=== PATIENT | male | born 1955 | race African-American/Black ===

== ENCOUNTER 2016-09-12 13:01 | Emergency (ER) | payer SELFPAY ==
[~2016-09-12] VITALS: Ht 185.4 cm; Wt 80.0 kg
[~2016-09-12 13:01] MED LIST: METH750T2 PO
[2016-09-12 13:05] VITALS: BP 121/76; PULSE 53; TEMP 97.8; O2SAT 100
[2016-09-12 13:53] LABS: AUTOMATED NEUTROPHIL # 2.2 TH/MM3 (1.8-7.7); EOSINOPHIL # 0.1 TH/MM3 (0-0.4); EOSINOPHIL % 2.5 % (0.0-4.0); HEMATOCRIT 47.2 % (39.0-51.0); HEMO FLAGS DIFF FINAL; LYMPH % 37.6 % (9.0-44.0); LYMPHOCYTE # 1.7 TH/MM3 (1.0-4.8); MEAN CELL VOLUME 91.4 FL (80.0-100.0); MEAN CORPUSCULAR HEMOGLOBIN 30.7 PG (27.0-34.0); MEAN CORPUSCULAR HGB CONC 33.6 % (32.0-36.0); MONO % 10.6 % (0.0-8.0); NEUT % 48.3 % (16.0-70.0); PLATELET COUNT 167 TH/MM3 (150-450); RED BLOOD COUNT 5.17 MIL/MM3 (4.50-5.90); WHITE BLOOD COUNT 4.5 TH/MM3 (4.0-11.0)
[2016-09-12 13:54] LABS: BLOOD, URINE TRACE (NEG); COMMENT (UR) CULT NOT INDICATED; CULTURE IF INDICATED CULT NOT INDICATED; GLUCOSE,URINE NEG (NEG); KETONE, URINE NEG (NEG); NITRITE,URINE NEG (NEG); URINE COLOR LIGHT-YELLOW (YELLW/STRAW)
[2016-09-12 14:21] LABS: BICARBONATE 30.1 MEQ/L (21.0-32.0); POTASSIUM 4.2 MEQ/L (3.5-5.1)
--- NOTE | 2016-09-12 14:22 | PD ---
HPI Chief Complaint: Back/ Neck Pain or Injury Time Seen by Provider: 13:14 Travel History International Travel<30 days: No Contact w/Intl Traveler<30days: No Traveled to known affect area: No History of Present Illness HPI The patient is a 60-year-old Z[place] male who presents to the emergency department multiple complaints. The patient is a 2 day history of left-sided neck pain which radiates into the left aspect of the head. The pain is worse when he turns the head to the left as well as upright into the left. The pain is sharp, radiates up into the left aspect of the head, nasal alleviated when he looks midline. He denies any pain when he turns the head to the right or down. He also complains of urinary frequency over the last several days, states he is getting up at night to urinate occasionally 2-3 times tonight, normally gets up one to 2 times per night. He denies any dysuria, frequency, urgency, or hematuria. He denies any history of diabetes or renal-related disorders. He is sexually active, denies any pain near the meatus or over the scrotal area. [facility] Past Medical History Medical History: Denies Significant Hx Diminished Hearing: No Past Surgical History Surgical History: No Previous Surgery Social History Alcohol Use: No Tobacco Use: Yes Substance Use: No Allergies-Medications (Allergen,Severity, Reaction): Coded Allergies: No Known Allergies (Unverified , 12/17/15) Reported Meds & Prescriptions Reported Meds & Active Scripts Active Robaxin (Methocarbamol) 750 Mg Tab 750 Mg PO Q8 PRN Review of Systems Except as stated in HPI: all other systems reviewed are Neg General / Constitutional: No: Fever HENT: Positive: Headaches, Neck Pain Cardiovascular: No: Chest Pain or Discomfort Respiratory: No: Shortness of Breath Gastrointestinal: No: Nausea, Vomiting, Abdominal Pain Genitourinary: Positive: Frequency, Nocturia, No: Urgency, Dysuria, Hematuria , Decreased Urinary Output, Hesitancy, Pelvic Pain Musculoskeletal: No: Myalgias, Arthralgias Skin: No Rash Physical Exam Narrative GENERAL: Awake, alert, pleasant 60-year-old [place] male who appears his stated age and is in no acute respiratory distress. SKIN: Focused skin assessment warm/dry. HEAD: Atraumatic. Normocephalic. EYES: Pupils equal and round. No scleral icterus. No injection or drainage. ENT: No nasal bleeding or discharge. Mucous membranes pink and moist. NECK: Trachea midline. No JVD. Mild tenderness of the left paravertebral muscle , pain is elicited with rotating the head to the left and upwards. No tenderness of the cervical vertebrae. CARDIOVASCULAR: Regular rate and rhythm. No murmur appreciated. RESPIRATORY: No accessory muscle use. Clear to auscultation. Breath sounds equal bilaterally. GASTROINTESTINAL: Abdomen soft, non-tender, nondistended. No rebound tenderness. No suprapubic tenderness. Back: No CVA tenderness. MUSCULOSKELETAL: No obvious deformities. No clubbing. No cyanosis. No edema. NEUROLOGICAL: Awake and alert. No obvious cranial nerve deficits. Motor grossly within normal limits. Normal speech. PSYCHIATRIC: Appropriate mood and affect; insight and judgment normal. Data Data Last Documented VS Vital Signs Date Time Temp Pulse Resp B/P Pulse Ox O2 Delivery O2 Flow Rate FiO2 09/12/16 13:05 97.8 53 121/76 100 Orders Basic Metabolic Panel (Bmp) (09/12/16 13:21) Urinalysis - C+S If Indicated (09/12/16 13:21) Complete Blood Count With Diff (09/12/16 13:21) Labs Laboratory Tests Test 09/12/16 13:30 White Blood Count 4.5 TH/MM3 Red Blood Count 5.17 MIL/MM3 Hemoglobin 15.9 GM/DL Hematocrit 47.2 % Mean Corpuscular Volume 91.4 FL Mean Corpuscular Hemoglobin 30.7 PG Mean Corpuscular Hemoglobin 33.6 % Concent Red Cell Distribution Width 14.0 % Platelet Count 167 TH/MM3 Mean Platelet Volume 9.0 FL Neutrophils (%) (Auto) 48.3 % Lymphocytes (%) (Auto) 37.6 % Monocytes (%) (Auto) 10.6 % Eosinophils (%) (Auto) 2.5 % Basophils (%) (Auto) 1.0 % Neutrophils # (Auto) 2.2 TH/MM3 Lymphocytes # (Auto) 1.7 TH/MM3 Monocytes # (Auto) 0.5 TH/MM3 Eosinophils # (Auto) 0.1 TH/MM3 Basophils # (Auto) 0.0 TH/MM3 CBC Comment DIFF FINAL Differential Comment Urine Color LIGHT-YELLOW Urine Turbidity CLEAR Urine pH 7.0 Urine Specific [place] 1.015 Urine Protein NEG mg/dL Urine Glucose (UA) NEG mg/dL Urine Ketones NEG mg/dL Urine Occult Blood TRACE Urine Nitrite NEG Urine Bilirubin NEG Urine Urobilinogen LESS THAN 2.0 MG/DL Urine Leukocyte Esterase NEG Urine RBC 3 /hpf Urine WBC 1 /hpf Microscopic Urinalysis Comment CULT NOT INDICATED Sodium Level 141 MEQ/L Potassium Level 4.2 MEQ/L Chloride Level 106 MEQ/L Carbon Dioxide Level 30.1 MEQ/L Anion Gap 5 MEQ/L Blood Urea Nitrogen 15 MG/DL Creatinine 1.36 MG/DL Estimat Glomerular Filtration 65 ML/MIN Rate Random Glucose 80 MG/DL Calcium Level 9.0 MG/DL [facility] Medical Decision Making Medical Screen Exam Complete: Yes Emergency Medical Condition: Yes Medical Record Reviewed: Yes Interpretation(s) Laboratory Tests Test 09/12/16 13:30 White Blood Count 4.5 TH/MM3 Red Blood Count 5.17 MIL/MM3 Hemoglobin 15.9 GM/DL Hematocrit 47.2 % Mean Corpuscular Volume 91.4 FL Mean Corpuscular Hemoglobin 30.7 PG Mean Corpuscular Hemoglobin 33.6 % Concent Red Cell Distribution Width 14.0 % Platelet Count 167 TH/MM3 Mean Platelet Volume 9.0 FL Neutrophils (%) (Auto) 48.3 % Lymphocytes (%) (Auto) 37.6 % Monocytes (%) (Auto) 10.6 % Eosinophils (%) (Auto) 2.5 % Basophils (%) (Auto) 1.0 % Neutrophils # (Auto) 2.2 TH/MM3 Lymphocytes # (Auto) 1.7 TH/MM3 Monocytes # (Auto) 0.5 TH/MM3 Eosinophils # (Auto) 0.1 TH/MM3 Basophils # (Auto) 0.0 TH/MM3 CBC Comment DIFF FINAL Differential Comment Urine Color LIGHT-YELLOW Urine Turbidity CLEAR Urine pH 7.0 Urine Specific [place] 1.015 Urine Protein NEG mg/dL Urine Glucose (UA) NEG mg/dL Urine Ketones NEG mg/dL Urine Occult Blood TRACE Urine Nitrite NEG Urine Bilirubin NEG Urine Urobilinogen LESS THAN 2.0 MG/DL Urine Leukocyte Esterase NEG Urine RBC 3 /hpf Urine WBC 1 /hpf Microscopic Urinalysis Comment CULT NOT INDICATED Sodium Level 141 MEQ/L Potassium Level 4.2 MEQ/L Chloride Level 106 MEQ/L Carbon Dioxide Level 30.1 MEQ/L Anion Gap 5 MEQ/L Blood Urea Nitrogen 15 MG/DL Creatinine 1.36 MG/DL Estimat Glomerular Filtration 65 ML/MIN Rate Random Glucose 80 MG/DL Calcium Level 9.0 MG/DL Differential Diagnosis Differential diagnosis includes cervical radiculopathy, muscle strain, neck strain, occipital neuralgia, UTI, prostatitis, ureteritis, hyperglycemia. Narrative Course Labs are drawn and sent. Creatinine is mildly elevated 1.36, was 1.341 year ago in 2016. UA is unremarkable except for a small metal blood. CBC is unremarkable. The patient is advised to follow-up with urology if symptoms persisted he may have BPH. Otherwise, patient will be treated with anti- inflammatories and muscle relaxer for the left neck strain with cervical radiculopathy, is advised to apply ice and/or heat to the affected area. Return if symptoms worsen or progress. Follow-up with a primary physician and/ or urologist. Diagnosis Primary Impression: Neck strain Qualified Code: S16.1XXA - Neck strain, initial encounter Additional Impression: Urinary frequency Patient Instructions: General Instructions Additional Instructions: Ice and/or heat to the left aspect of the neck. Pain medication and muscle relaxer as directed. Follow-up with urology if symptoms persist. Please provide the patient a copy of his labs at discharge. Return if symptoms worsen or progress. Med/Other Pt SpecificInfo: Prescription(s) given Scripts Ibuprofen 400 Mg [id number] Mg PO Q8H PRN (PAIN SCALE 1 TO 10) #20 TAB Ref 0 Prov:Zachary Levy MD 09/12/16 Orphenadrine ER 12 HR (Orphenadrine CR)100 Mg [id number] Mg PO Q12HR #20 TAB Ref 0 Prov:Zachary Levy MD 09/12/16 Disposition: 01 DISCHARGE HOME Condition: Stable Zachary Levy MD Sep 12, 2016 14:22
[2016-09-12] MEDS ORDERED: ORPH100T99 PO (14:40)
[2016-09-12] MEDS ORDERED: IBUP400T20 PO (14:40)
== END 2016-09-12 15:20 | disposition home or self-care (01) ==
LOC: NEPD 13:01
DX: S16.1XXA Strain of muscle, fascia and tendon at neck level, initial encounter (principal); M54.12 Radiculopathy, cervical region; R35.0 Frequency of micturition; Z72.0 Tobacco use
CPT/HCPCS: 80048; 81001; 85025; 99283